=== PATIENT | female | born 1995 | race Caucasian/White ===

== ENCOUNTER → 2019-10-18 13:54 | Outpatient (BNVA) | payer OTHER, SELFPAY | PROVIDERS: Family Provider Nurse Practitioner Family; PCP Family Medicine; Visit Provider Registered Nurse | DX: Z79.899 Other long term (current) drug therapy (principal) | CPT/HCPCS: 80053; 85007; 85027 ==

== ENCOUNTER → 2020-01-23 12:03 | Outpatient (BNVA) | payer SELFPAY | PROVIDERS: Family Provider Nurse Practitioner Family; PCP Family Medicine; Visit Provider Emergency Medicine | DX: R35.0 Frequency of micturition (principal); H65.193 Other acute nonsuppurative otitis media, bilateral | CPT/HCPCS: 81000 ==

== ENCOUNTER → 2020-09-09 09:32 | Outpatient (BNVA) | payer SELFPAY | PROVIDERS: Family Provider Nurse Practitioner Family; PCP Family Medicine; Visit Provider Family Medicine | DX: N92.1 Excessive and frequent menstruation with irregular cycle (principal); Z72.51 High risk heterosexual behavior | CPT/HCPCS: 81025 ==

== ENCOUNTER → 2021-01-29 14:54 | Outpatient (BNVA) | payer OTHER, SELFPAY | PROVIDERS: Family Provider Nurse Practitioner Family; PCP Family Medicine; Visit Provider Registered Nurse | DX: Z34.90 Encounter for supervision of normal pregnancy, unspecified, unspecified trimester (principal) | CPT/HCPCS: 36415; 80053; 81025; 85025 ==

== ENCOUNTER → 2021-12-21 14:44 | Outpatient (BNVA) | payer OTHER, SELFPAY | PROVIDERS: Family Provider Nurse Practitioner Family; PCP Family Medicine; Visit Provider Emergency Medicine | DX: R35.0 Frequency of micturition (principal); B34.9 Viral infection, unspecified; N39.0 Urinary tract infection, site not specified | CPT/HCPCS: 81000 ==

== ENCOUNTER → 2022-01-07 10:52 | Outpatient (BNVA) | payer OTHER, SELFPAY | PROVIDERS: Family Provider Nurse Practitioner Family; PCP Family Medicine; Visit Provider Registered Nurse | DX: Z79.899 Other long term (current) drug therapy (principal) | CPT/HCPCS: 80061; 83036 ==

== ENCOUNTER → 2022-06-29 14:11 | Outpatient (BNVA) | payer OTHER, SELFPAY ==
[2022-02-01 16:07] VITALS: BP 127/87; BMI 36.1
== END ==
PROVIDERS: Family Provider Nurse Practitioner Family; PCP Family Medicine; Visit Provider Family Medicine
DX: J20.8 Acute bronchitis due to other specified organisms (principal); B96.89 Other specified bacterial agents as the cause of diseases classified elsewhere; R68.89 Other general symptoms and signs; B00.1 Herpesviral vesicular dermatitis
CPT/HCPCS: 87400

== ENCOUNTER → 2022-11-01 16:33 | Outpatient (BNVA) | payer OTHER, SELFPAY ==
[2022-02-01 16:07] VITALS: BP 127/87; BMI 36.1
== END ==
PROVIDERS: Family Provider Nurse Practitioner Family; PCP Family Medicine; Visit Provider Nurse Practitioner Family
DX: N92.6 Irregular menstruation, unspecified (principal); N91.2 Amenorrhea, unspecified; R09.82 Postnasal drip; R59.0 Localized enlarged lymph nodes
CPT/HCPCS: 81025

== ENCOUNTER → 2022-12-13 15:40 | Outpatient (BNVA) | payer OTHER, SELFPAY ==
[2022-02-01 16:07] VITALS: BP 127/87; BMI 36.1
== END ==
PROVIDERS: Family Provider Nurse Practitioner Family; PCP Family Medicine; Referring Provider Nurse Practitioner Family; Visit Provider Obstetrics & Gynecology
DX: Z01.419 Encounter for gynecological examination (general) (routine) without abnormal findings (principal); E28.2 Polycystic ovarian syndrome; N93.9 Abnormal uterine and vaginal bleeding, unspecified
CPT/HCPCS: 82627; 83036; 83525; 84403; 84443; 85025; 87624

== ENCOUNTER → 2022-12-23 13:27 | Outpatient (BNVA) | payer OTHER, SELFPAY ==
[2022-02-01 16:07] VITALS: BP 127/87; BMI 36.1
== END ==
PROVIDERS: Family Provider Nurse Practitioner Family; PCP Family Medicine; Visit Provider Obstetrics & Gynecology
DX: E28.2 Polycystic ovarian syndrome (principal)
CPT/HCPCS: 85025

== ENCOUNTER → 2022-12-30 13:11 | Outpatient (BNVA) | payer OTHER, SELFPAY ==
[2022-02-01 16:07] VITALS: BP 127/87; BMI 36.1
== END ==
PROVIDERS: Family Provider Nurse Practitioner Family; PCP Family Medicine; Visit Provider Obstetrics & Gynecology
DX: N93.9 Abnormal uterine and vaginal bleeding, unspecified (principal); E28.2 Polycystic ovarian syndrome
CPT/HCPCS: 76830

== ENCOUNTER → 2023-12-05 15:30 | Outpatient (BNVA) | payer OTHER, SELFPAY ==
[2022-02-01 16:07] VITALS: BP 127/87; BMI 36.1
== END ==
PROVIDERS: Family Provider Nurse Practitioner Family; PCP Family Medicine; Visit Provider Nurse Practitioner Family
DX: N39.0 Urinary tract infection, site not specified
CPT/HCPCS: 81000; 87086